=== PATIENT | female | born 2000 | race Caucasian/White ===

== ENCOUNTER 2018-04-28 23:47 | Emergency (ER) | payer MEDICAID, OTHER ==
[~2018-04-28] VITALS: Ht 149.9 cm; Wt 45.8 kg
[2018-04-29 00:06] VITALS: BP 119/86
[2018-04-29 01:06] LABS: Basophils # (auto) 0.1 uL; Basophils % (auto) 0.6 % (0.0-2.0); Eosinophils # (auto) 0.1 uL; Eosinophils % (auto) 1.2 % (0.0-7.0); Hemoglobin 12.9 g/dL (12.2-16.2); Lymphocytes # (auto) 3.1 uL; Mean Corpuscular Hgb Conc. 33.1 g/dL (32.0-36.0); Mean Corpuscular Volume 93.7 fL (80.0-100.0); Monocytes # (auto) 1.7 uL; Monocytes % (auto) 14.4 % (0.0-12.0); Neutrophils # (auto) 6.9 uL; Neutrophils % (auto) 57.8 % (37.0-80.0); Platelet Count (auto) 321 10^3/uL (140-450); Red Blood Cells 4.17 10^6/uL (4.0-5.20); Red Cell Distribution Width 13.2 % (11.8-14.3); White Blood Cell 11.9 10^3/uL (4.4-10.8)
[2018-04-29 01:22] LABS: BUN/Creatinine Ratio 18.8; Potassium 3.7 mmol/L (3.5-5.1)
[2018-04-29 01:23] LABS: INR 1.13 (0.9-1.15); Partial Thromboplastin Time 28.3 sec (23.78-33.04)
[2018-04-29 02:53] LABS: Urine Bacteria FEW /hpf (None Seen); Urine Blood Negative /uL (Negative); Urine Mucus FEW (None Seen); Urine Specific Gravity 1.029 (1.001-1.035); Urine WBC 24 /hpf (0 - 5)
== END 2018-04-29 04:34 | disposition left against medical advice (07) ==
LOC: ER 23:47
DX: R10.9 Unspecified abdominal pain (principal); R11.2 Nausea with vomiting, unspecified; Z53.21 Procedure and treatment not carried out due to patient leaving prior to being seen by health care provider
CPT/HCPCS: 36415; 80048; 81001; 81025; 84702; 85025; 85610; 85730

== ENCOUNTER 2018-10-25 14:27 | Emergency (ER) | payer MEDICAID ==
[~2018-10-25] VITALS: Ht 149.9 cm; Wt 48.1 kg
[2018-10-25 15:26] LABS: Urine Bacteria NONE SEEN /hpf (None Seen); Urine Blood Negative /uL (Negative); Urine Mucus FEW (None Seen); Urine Specific Gravity 1.022 (1.001-1.035); Urine WBC 8 /hpf (0 - 5)
[2018-10-25 15:41] LABS: Basophils # (auto) 0 uL; Basophils % (auto) 0.4 % (0.0-2.0); Eosinophils # (auto) 0.1 uL; Eosinophils % (auto) 0.8 % (0.0-7.0); Hematocrit 37.1 % (36.0-46.0); Hemoglobin 12.3 g/dL (12.2-16.2); Lymphocytes # (auto) 4.9 uL; Mean Corpuscular Hemoglobin 30.6 pg (28.0-32.0); Mean Corpuscular Hgb Conc. 33.1 g/dL (32.0-36.0); Mean Corpuscular Volume 92.5 fL (80.0-100.0); Monocytes # (auto) 0.7 uL; Monocytes % (auto) 7.5 % (0.0-12.0); Neutrophils # (auto) 3.2 uL; Neutrophils % (auto) 36.1 % (37.0-80.0); Nucleated Red Blood Cells % 0.1 %; Platelet Count (auto) 323 10^3/uL (140-450); Red Blood Cells 4.01 10^6/uL (4.0-5.20); Red Cell Distribution Width 13.6 % (11.8-14.3); White Blood Cell 8.9 10^3/uL (4.4-10.8)
[2018-10-25 15:51] LABS: Lymphocytes % (auto) 55.2 % (10.0-50.0)
[2018-10-25 15:53] LABS: Calcium 8.5 mg/dL (8.5-10.1); Potassium 3.7 mmol/L (3.5-5.1)
[2018-10-25 15:59] LABS: Albumin 3.9 g/dL (3.4-5.0); BUN/Creatinine Ratio 24.6; Bilirubin, Total 0.4 mg/dL (0.2-1.0); Total Protein 7.7 g/dL (6.4-8.2)
[2018-10-25] MEDS ORDERED: IOHEXOL 300 MG/ML 100ML BOTTLE IJ ONE (17:23)
[2018-10-25] MEDS ORDERED: ONDANSETRON HCL 4 MG/2 ML VIAL IV ONE (18:15)
[2018-10-25] MEDS ORDERED: SODIUM CHLORIDE 0.9% 1,000 ML IV ONE (18:15)
[2018-10-25 19:23] VITALS: BP 98/48
== END 2018-10-25 19:35 | disposition home or self-care (01) ==
LOC: ER 14:30
DX: N20.0 Calculus of kidney (principal); K59.00 Constipation, unspecified
CPT/HCPCS: 36415; 74176; 74177; 80053; 81001; 81025; 85025; 96374; 99284; J2405; Q9967

== ENCOUNTER 2018-12-01 05:00 | Emergency (ER) | payer MEDICAID ==
[~2018-12-01] VITALS: Ht 152.4 cm; Wt 48.1 kg
[2018-12-01 05:34] VITALS: BP 101/48
[2018-12-01 05:54] LABS: Basophils # (auto) 0 uL; Basophils % (auto) 0.4 % (0.0-2.0); Eosinophils # (auto) 0.1 uL; Eosinophils % (auto) 1.1 % (0.0-7.0); Hematocrit 39.7 % (36.0-46.0); Hemoglobin 13.1 g/dL (12.2-16.2); Lymphocytes # (auto) 5.3 uL; Lymphocytes % (auto) 41.2 % (10.0-50.0); Mean Corpuscular Hemoglobin 31.2 pg (28.0-32.0); Mean Corpuscular Hgb Conc. 33.1 g/dL (32.0-36.0); Mean Corpuscular Volume 94.2 fL (80.0-100.0); Monocytes # (auto) 1.1 uL; Monocytes % (auto) 8.8 % (0.0-12.0); Neutrophils # (auto) 6.2 uL; Neutrophils % (auto) 48.5 % (37.0-80.0); Nucleated Red Blood Cells % 0.1 %; Platelet Count (auto) 340 10^3/uL (140-450); Red Blood Cells 4.21 10^6/uL (4.0-5.20); Red Cell Distribution Width 13.2 % (11.8-14.3); White Blood Cell 12.8 10^3/uL (4.4-10.8)
[2018-12-01 05:56] LABS: Urine Bacteria MOD /hpf (None Seen); Urine Blood 1+ /uL (Negative); Urine Mucus FEW (None Seen); Urine Specific Gravity 1.031 (1.001-1.035); Urine WBC 24 /hpf (0 - 5)
[2018-12-01 06:13] LABS: Calcium 8.5 mg/dL (8.5-10.1)
[2018-12-01 06:20] LABS: Bilirubin, Total 0.5 mg/dL (0.2-1.0)
[2018-12-01] MEDS ORDERED: SODIUM CHLORIDE 0.9% 1,000 ML IV ONE ×2 (07:43)
[2018-12-01] MEDS ORDERED: TAMSULOSIN HYDROCHLORIDE 0.4 MG CAP PO ONE (07:45)
[2018-12-01] MEDS ORDERED: KETOROLAC TROMETH 30 MG/ML 1ML VIAL IV ONE (07:45)
== END 2018-12-01 11:26 | disposition left against medical advice (07) ==
LOC: ER 05:00
DX: N20.0 Calculus of kidney (principal); N39.0 Urinary tract infection, site not specified
CPT/HCPCS: 36415; 74176; 80053; 81001; 82150; 83690; 85025

== ENCOUNTER 2019-04-21 22:06 | Observation (INO) | payer MEDICAID ==
[~2019-04-21] VITALS: Ht 124.5 cm; Wt 49.9 kg
[2019-04-21] MEDS ORDERED: SODIUM CHLORIDE 0.9% 1,000 ML IV SCH (22:52)
[2019-04-21] MEDS ORDERED: ACETAMINOPHEN 325 MG TAB PO ONE (23:00)
[2019-04-21] MEDS ORDERED: cefTRIAXone 1GM/50ML D5W 50 ML IV ONE (23:00)
[2019-04-22] MEDS ORDERED: SODIUM CHLORIDE 0.9% 1,000 ML IV SCH
[2019-04-22 01:56] LABS: Urine Bacteria MANY /hpf (None Seen); Urine Blood Negative /uL (Negative); Urine Mucus FEW (None Seen); Urine Specific Gravity 1.021 (1.001-1.035); Urine WBC 11 /hpf (0 - 5)
[2019-04-22] MEDS ORDERED: ACETAMINOPHEN 325 MG TAB PO PRN (03:00)
[2019-04-22] MEDS ORDERED: cefTRIAXone 1GM/50ML D5W 50 ML IV ONE (06:00)
[2019-04-22] MEDS ORDERED: PREN-153 OR (06:07)
[2019-04-22 07:41] LABS: Alcohol, Urine < 3.0 mg/dL (0-5); Amphetamine Screen, Urine NEGATIVE (NEGATIVE); Barbiturate Scree,Urine NEGATIVE (NEGATIVE); Benzodiazephine Screen, Urine NEGATIVE (NEGATIVE); Cannabinoid Screen, Urine NEGATIVE (NEGATIVE); Cocaine Screen, Urine NEGATIVE (NEGATIVE); Opiate Scree,Urine NEGATIVE (NEGATIVE); Phencyclidine Screen, Urine NEGATIVE (NEGATIVE)
== END 2019-04-22 07:20 | disposition home or self-care (01) | DRG 566 ==
LOC: LDRP 22:06
PROVIDERS: ADMIT Specialist; ATTEND Specialist
DX: O26.892 Other specified pregnancy related conditions, second trimester (principal); R50.9 Fever, unspecified; M54.9 Dorsalgia, unspecified; R10.9 Unspecified abdominal pain; Z3A.20 20 weeks gestation of pregnancy
CPT/HCPCS: 59025; 80307; 81001; 81002; 87086; 96365; 96366; G0378; J0696; J7030

== ENCOUNTER 2020-06-09 19:46 | Emergency (ER) | payer MEDICAID ==
[~2020-06-09] VITALS: Ht 149.9 cm; Wt 54.4 kg
[~2020-06-09 19:46] MED LIST: PREN-153 OR
[2020-06-09 22:31] VITALS: BP 109/65
== END 2020-06-10 00:20 | disposition home or self-care (01) ==
LOC: ER 19:46
DX: O20.0 Threatened abortion (principal); Z3A.01 Less than 8 weeks gestation of pregnancy; Z79.899 Other long term (current) drug therapy
CPT/HCPCS: 36415; 76801; 84702

== ENCOUNTER 2020-09-08 18:40 | Emergency (ER) | payer MEDICAID ==
[~2020-09-08] VITALS: Ht 154.9 cm; Wt 56.7 kg
[2020-09-08 22:43] VITALS: BP 118/72
== END 2020-09-09 01:04 | disposition home or self-care (01) ==
LOC: ER 18:41
DX: U07.1 COVID-19 (principal)
CPT/HCPCS: 36415; 87426